=== PATIENT | female | born 1990 | race Caucasian/White ===

== ENCOUNTER 2019-02-05 15:14 | Inpatient (IN) | payer OTHER, MEDICAID ==
[2019-02-05 16:47] LABS: ABNORMAL IP MESSAGE 1; MEAN CORPUSCULAR HEMOGLOBIN 32.1 pg (29.0-33.0); MEAN CORPUSCULAR HGB CONC 34.6 g/dl (32.0-37.0); MEAN CORPUSCULAR VOLUME 92.9 fl (82.0-101.0); MEAN PLATELET VOLUME 12.1 fl (7.4-10.4); NUCLEATED RED BLOOD CELLS% 37.6 /100WBC (0.0-0.0); PLATELET COUNT 213 10^3/UL (140-415); RED CELL DISTRIBUTION WIDTH 20.5 % (11.5-14.5)
[2019-02-05 16:47] LABS: WHITE BLOOD COUNT 8.4 10^3/ul (4.8-10.8)
[2019-02-05 16:50] LABS: ADD MAN DIFF? YES; POSITIVE DIFF @See below
[2019-02-05 17:05] LABS: ALANINE AMINOTRANSFERASE 42 IU/L (13-69); ALBUMIN 3.3 g/dl (3.3-4.9); ALBUMIN/GLOBULIN RATIO 0.82; ALKALINE PHOSPHATASE 677 IU/L (42-121); AMYLASE 74 U/L (11-123); ANION GAP 7 (5-13); ASPARTATE AMINO TRANSFERASE 107 IU/L (15-46); BILIRUBIN,INDIRECT 2.6 mg/dl (0-1.1); BILIRUBIN,TOTAL 2.6 mg/dl (0.2-1.3); BLOOD UREA NITROGEN 7 mg/dl (7-20); CARBON DIOXIDE 23 mmol/L (21-31); CHLORIDE 106 mmol/L (97-110); CREATININE 0.61 mg/dl (0.44-1.00); Estimated GFR > 60 mL/min (>60); GLUCOSE 89 mg/dl (70-220); LIPASE 88 U/L (23-300); POTASSIUM 4.5 mmol/L (3.5-5.1); SODIUM 136 mmol/L (135-144); TOTAL PROTEIN 7.3 g/dl (6.1-8.1)
[2019-02-05 18:02] LABS: ANISOCYTOSIS 3+ (0-0); BAND NEUTROPHILS % (M) 12 % (0-4); BASOPHIL #M 0.4 10^3/ul (0.0-0.0); BASOPHILS % (M) 5 % (0-2); ERYTHROBLAST% (NRBC) (M) 47 % (0-0); GIANT THROMBO% (M) 63 % (0-0); LYMPHOCYTES #M 2.7 10^3/ul (0.8-2.9); LYMPHOCYTES % (M) 33 % (15-51); MONOCYTE #M 0.9 10^3/ul (0.3-0.9); MONOCYTES % (M) 11 % (0-11); MYELOCYTES #M 0.1 10^3/ul (0.0-0.0); MYELOCYTES % (M) 2 % (0-0); PLATELET ESTIMATE NORMAL; POIKILOCYTOSIS 3+ (0-0); POLYCHROMASIA 3+ (0-0); REACTIVE LYMPHOCYTES #M 0.4 10^3/ul (0.0-0.0); REACTIVE LYMPHOCYTES% (M) 5 % (0-0); SEG NEUT #M 2.8 10^3/ul (1.6-7.5); SEGMENTED NEUTROPHILS (M) % 32 % (39-77); SMUDGE%M 9 % (0-0)
[2019-02-05] MEDS: LACTATED RINGER'S 1,000 ML IV ×2 (19:16→23:16)
[2019-02-06 00:02] LABS: ADD UMIC YES; UR ASCORBIC ACID NEGATIVE (NEGATIVE); UR BACTERIA FEW /HPF (NONE SEEN); UR BILIRUBIN (Dip) NEGATIVE (NEGATIVE); UR BLOOD (Dip) 1+ mg/dL (NEGATIVE); UR CLARITY CLEAR (CLEAR); UR COLOR YELLOW (YELLOW); UR GLUCOSE (Dip) NEGATIVE (NEGATIVE); UR KETONES (Dip) NEGATIVE (NEGATIVE); UR LEUKOCYTE ESTERASE (Dip) NEGATIVE Leu/ul (NEGATIVE); UR NITRITE (Dip) NEGATIVE (NEGATIVE); UR RBC 0 /HPF (0-5); UR SPECIFIC GRAVITY (Dip) 1.002 (1.003-1.030); UR TOTAL PROTEIN (Dip) NEGATIVE (NEGATIVE); UR UROBILINOGEN (Dip) NEGATIVE (NEGATIVE); UR WBC 0 /HPF (0-5)
[2019-02-06 06:26] LABS: WHITE BLOOD COUNT 8.5 10^3/ul (4.8-10.8)
[2019-02-06 06:26] LABS: ABNORMAL IP MESSAGE 1; HEMATOCRIT 24.4 % (37.0-47.0); HEMOGLOBIN 8.6 g/dl (12.0-16.0); MEAN CORPUSCULAR HEMOGLOBIN 32.5 pg (29.0-33.0); MEAN CORPUSCULAR HGB CONC 35.2 g/dl (32.0-37.0); MEAN CORPUSCULAR VOLUME 92.1 fl (82.0-101.0); MEAN PLATELET VOLUME 12.2 fl (7.4-10.4); PLATELET COUNT 187 10^3/UL (140-415); RED BLOOD COUNT 2.65 10^6/ul (4.20-5.40); RED CELL DISTRIBUTION WIDTH 20.4 % (11.5-14.5)
[2019-02-06 06:42] LABS: ADD MAN DIFF? YES; POSITIVE DIFF @See below
[2019-02-06 06:57] LABS: ALANINE AMINOTRANSFERASE 36 IU/L (13-69); ALBUMIN/GLOBULIN RATIO 0.81; ALKALINE PHOSPHATASE 613 IU/L (42-121); ANION GAP 7 (5-13); ASPARTATE AMINO TRANSFERASE 99 IU/L (15-46); BILIRUBIN,INDIRECT 2.2 mg/dl (0-1.1); BILIRUBIN,TOTAL 2.2 mg/dl (0.2-1.3); BLOOD UREA NITROGEN 5 mg/dl (7-20); CALCIUM 8.4 mg/dl (8.4-10.2); CARBON DIOXIDE 22 mmol/L (21-31); CHLORIDE 110 mmol/L (97-110); CREATININE 0.54 mg/dl (0.44-1.00); Estimated GFR > 60 mL/min (>60); GLUCOSE 76 mg/dl (70-220); POTASSIUM 4.7 mmol/L (3.5-5.1); SODIUM 139 mmol/L (135-144); TOTAL PROTEIN 6.7 g/dl (6.1-8.1)
[2019-02-06] MEDS ORDERED: FOLIC ACID 0.4 MG TAB PO (09:00)
[2019-02-06 10:16] LABS: ANISOCYTOSIS 2+ (0-0); BAND NEUTROPHILS % (M) 12 % (0-4); BURR CELLS 1+ (0-0); EOSINOPHILS % (M) 1 % (0-7); ERYTHROBLAST% (NRBC) (M) 28 % (0-0); GIANT THROMBO% (M) 34 % (0-0); LYMPHOCYTES #M 1.3 10^3/ul (0.8-2.9); LYMPHOCYTES % (M) 16 % (15-51); METAMYELOCYTES %M 1 % (0-0); MONOCYTE #M 0.9 10^3/ul (0.3-0.9); MONOCYTES % (M) 11 % (0-11); MYELOCYTES #M 0.1 10^3/ul (0.0-0.0); MYELOCYTES % (M) 2 % (0-0); PLATELET ESTIMATE NORMAL; POIKILOCYTOSIS 2+ (0-0); POLYCHROMASIA 3+ (0-0); REACTIVE LYMPHOCYTES #M 0.7 10^3/ul (0.0-0.0); REACTIVE LYMPHOCYTES% (M) 9 % (0-0); SEG NEUT #M 4.2 10^3/ul (1.6-7.5); SEGMENTED NEUTROPHILS (M) % 48 % (39-77); SICKLE CELL 2+ (0-0); SMUDGE%M 9 % (0-0); TARGET CELLS 1+ (0-0)
[2019-02-06] MEDS: PRENATAL VITAMIN PO (10:28)
[2019-02-06] MEDS: FERROUS SULFATE (EC) 325 MG TAB PO (10:28)
[2019-02-06] MEDS: LACTATED RINGER'S 1,000 ML IV ×2 (12:04→20:21)
[2019-02-06] MEDS: FOLIC ACID 1 MG TAB PO (12:04)
[2019-02-06 23:55] LABS: COLLECTION PERIOD 24 hrs
[2019-02-07 01:07] LABS: COLLECTION PERIOD 24 hrs; CREATININE CLEARANCE 148.2 mls/min (84.0-162.0); CREATININE,URINE RANDOM 23.05 mg/dl (20-320); SCRET 0.54 mg/dl (0.44-1.00); VOLUME 5000 ml/24hrs
[2019-02-07 01:14] LABS: VOLUME 5000 mls
[2019-02-07] MEDS ORDERED: FOLIC ACID 1 MG TAB PO ×2 (09:00)
== END 2019-02-06 23:20 | disposition home or self-care (01) | DRG 832 ==
LOC: OBT 15:14 → L-D 02-06 00:07 → OBT 17:43 → L-D 17:43
DX: O26.613 Liver and biliary tract disorders in pregnancy, third trimester (principal); O47.03 False labor before 37 completed weeks of gestation, third trimester; R74.8 Abnormal levels of other serum enzymes; O99.013 Anemia complicating pregnancy, third trimester; D57.1 Sickle-cell disease without crisis; O34.219 Maternal care for unspecified type scar from previous cesarean delivery; Z3A.36 36 weeks gestation of pregnancy
CPT/HCPCS: 76705; 76815; 76818; 80053; 81001; 82150; 82575; 82728; 83690; 84156; 85025; 86850; 86900; 86901; 87086

== ENCOUNTER 2019-02-12 21:38 | Inpatient (IN) | payer OTHER ==
[2019-02-12] MEDS: DEXTROSE 5%-LR 1,000 ML IV (22:54)
[2019-02-12 23:58] LABS: ABNORMAL IP MESSAGE 1; HEMATOCRIT 23.8 % (37.0-47.0); HEMOGLOBIN 8.6 g/dl (12.0-16.0); MEAN CORPUSCULAR HGB CONC 36.1 g/dl (32.0-37.0); MEAN CORPUSCULAR VOLUME 91.2 fl (82.0-101.0); MEAN PLATELET VOLUME 12.4 fl (7.4-10.4); NUCLEATED RED BLOOD CELLS% 27.4 /100WBC (0.0-0.0); PLATELET COUNT 215 10^3/UL (140-415); RED BLOOD COUNT 2.61 10^6/ul (4.20-5.40); RED CELL DISTRIBUTION WIDTH 20.8 % (11.5-14.5)
[2019-02-13 00:16] LABS: ALANINE AMINOTRANSFERASE 43 IU/L (13-69); ALBUMIN 3.4 g/dl (3.3-4.9); ALBUMIN/GLOBULIN RATIO 0.85; ALKALINE PHOSPHATASE 768 IU/L (42-121); ANION GAP 7 (5-13); ASPARTATE AMINO TRANSFERASE 123 IU/L (15-46); BILIRUBIN,INDIRECT 2.3 mg/dl (0-1.1); BILIRUBIN,TOTAL 2.3 mg/dl (0.2-1.3); BLOOD UREA NITROGEN 8 mg/dl (7-20); CALCIUM 8.7 mg/dl (8.4-10.2); CARBON DIOXIDE 23 mmol/L (21-31); CHLORIDE 107 mmol/L (97-110); CREATININE 0.69 mg/dl (0.44-1.00); Estimated GFR > 60 mL/min (>60); GLUCOSE 100 mg/dl (70-220); POTASSIUM 4.6 mmol/L (3.5-5.1); SODIUM 137 mmol/L (135-144); TOTAL PROTEIN 7.4 g/dl (6.1-8.1); URIC ACID 7.9 mg/dl (3.1-7.9)
[2019-02-13 00:18] LABS: INR 0.99; PROTIME 13.2 Sec (11.9-14.9)
[2019-02-13 00:19] LABS: PARTIAL THROMBOPLASTIN TIME 29.7 Sec (23.0-35.0)
[2019-02-13 00:24] LABS: POSITIVE DIFF @See below
[2019-02-13 00:25] LABS: ADD MAN DIFF? YES
[2019-02-13] MEDS: LACTATED RINGER'S 1,000 ML IV (00:29)
[2019-02-13] MEDS ORDERED: MISOPROSTOL 200 MCG TAB PR ×2 (00:30→02:30)
[2019-02-13] MEDS ORDERED: OXYTOCIN 30 UNITS/LR 500 ML IV ×2 (00:30→02:30)
[2019-02-13] MEDS: CEFAZOLIN 2 GM/50 ML (PMX) 50 ML IVPB ×3 (00:30→17:33)
[2019-02-13] MEDS ORDERED: METHYLERGONOVINE 0.2 MG INJ IM ×2 (00:30→02:30)
[2019-02-13] MEDS ORDERED: CARBOPROST 250 MCG INJ IM ×2 (00:30→02:30)
[2019-02-13] MEDS ORDERED: morphine SULFATE/PF (10 MG/10 ML) INJ (00:42)
[2019-02-13] MEDS ORDERED: FENTAnyl 50 MCG/ML VIAL (00:42)
[2019-02-13] MEDS ORDERED: MIDAZOLAM 1 MG/ML 2 ML INJ (00:42)
[2019-02-13] MEDS: AMPICILLIN 2 GM/NS (PMX) 100 ML IV (00:43)
[2019-02-13] MEDS ORDERED: NALOXONE (0.4 MG/ML) INJ IV (01:00)
[2019-02-13] MEDS ORDERED: ONDANSETRON 4 MG INJ IV (01:00)
[2019-02-13] MEDS ORDERED: HYDROmorphONE 0.5 MG/0.5 ML SYG IV ×2 (01:00)
[2019-02-13] MEDS ORDERED: DIPHENHYDRAMINE 50 MG INJ IV (01:00)
[2019-02-13] MEDS ORDERED: ZOLPIDEM 5 MG TAB PO (01:00)
[2019-02-13] MEDS ORDERED: DEXAMETHASONE 4 MG/ML 1 ML INJ (01:03)
[2019-02-13] MEDS ORDERED: FAMOTIDINE 20 MG INJ (01:04)
[2019-02-13 01:16] LABS: ANISOCYTOSIS 2+ (0-0); BAND NEUTROPHILS #M 1.8 10^3/ul (0.0-0.6); BAND NEUTROPHILS % (M) 12 % (0-4); EOSINOPHILS % (M) 5 % (0-7); ERYTHROBLAST% (NRBC) (M) 30 % (0-0); GIANT THROMBO% (M) 24 % (0-0); LYMPHOCYTES #M 2.2 10^3/ul (0.8-2.9); LYMPHOCYTES % (M) 15 % (15-51); METAMYELOCYTES #M 0.7 10^3/ul (0.0-0.0); METAMYELOCYTES %M 5 % (0-0); MICROCYTOSIS 1+ (0-0); MONOCYTE #M 1.2 10^3/ul (0.3-0.9); MONOCYTES % (M) 8 % (0-11); MYELOCYTES #M 0.1 10^3/ul (0.0-0.0); MYELOCYTES % (M) 1 % (0-0); OVALOCYTES 2+ (0-0); PLATELET ESTIMATE NORMAL; PLATELET MORPHOLOGY COMMENT @See below; POIKILOCYTOSIS 3+ (0-0); POLYCHROMASIA 1+ (0-0); REACTIVE LYMPHOCYTES% (M) 7 % (0-0); SEG NEUT #M 7.5 10^3/ul (1.6-7.5); SEGMENTED NEUTROPHILS (M) % 48 % (39-77); SICKLE CELL 2+ (0-0); SMUDGE%M 26 % (0-0); SPHEROCYTES 1+ (0-0)
[2019-02-13] MEDS ORDERED: CEFAZOLIN 2 GM/50 ML (PMX) 50 ML IVPB ×2 (02:30→05:00)
[2019-02-13] MEDS ORDERED: NACL 0.9% 3 ML SYG IV (02:30)
[2019-02-13] MEDS ORDERED: LANOLIN HPA 1 PKT TOP (02:30)
[2019-02-13] MEDS: OXYTOCIN 30 UNITS/LR 500 ML IV ×2 (03:17→04:44)
[2019-02-13 03:55] LABS: ADD MAN DIFF? NO
[2019-02-13 04:01] LABS: WHITE BLOOD COUNT 14.5 10^3/ul (4.8-10.8)
[2019-02-13 04:01] LABS: ABNORMAL IP MESSAGE 1; BASOPHIL # 0.1 10^3/ul (0.0-0.1); BASOPHILS % 0.8 % (0.0-2.0); EOSINOPHILS # 0.1 10^3/ul (0.0-0.5); EOSINOPHILS % 0.4 % (0.0-7.0); HEMOGLOBIN 7.9 g/dl (12.0-16.0); LYMPHOCYTES # 2.3 10^3/ul (0.8-2.9); MEAN CORPUSCULAR HEMOGLOBIN 33.3 pg (29.0-33.0); MEAN CORPUSCULAR HGB CONC 35.9 g/dl (32.0-37.0); MEAN CORPUSCULAR VOLUME 92.8 fl (82.0-101.0); MEAN PLATELET VOLUME 11.8 fl (7.4-10.4); MONOCYTE # 0.7 10^3/ul (0.3-0.9); MONOCYTES % 4.7 % (0.0-11.0); NEUTROPHIL # 9.6 10^3/ul (1.6-7.5); NEUTROPHILS % 66.2 % (39.0-77.0); NUCLEATED RED BLOOD CELLS # 3.7 10^3/ul (0.0-0.0); NUCLEATED RED BLOOD CELLS% 25.6 /100WBC (0.0-0.0); PLATELET COUNT 157 10^3/UL (140-415); RED BLOOD COUNT 2.37 10^6/ul (4.20-5.40); RED CELL DISTRIBUTION WIDTH 20.6 % (11.5-14.5)
[2019-02-13 04:21] LABS: POSITIVE DIFF @See below
[2019-02-13] MEDS: KETOROLAC 30 MG INJ IV ×2 (04:26→14:39)
[2019-02-13] MEDS ORDERED: OXYTOCIN 30 UNITS/LR 500 ML BAG IV (12:42)
[2019-02-13] MEDS: FERROUS SULFATE (EC) 325 MG TAB PO (20:41)
[2019-02-13 20:56] LABS: RAPID PLASMA REAGIN NONREACTIVE (NR)
[2019-02-14] MEDS: CEFAZOLIN 2 GM/50 ML (PMX) 50 ML IVPB (01:00)
[2019-02-14] MEDS: OXYCODONE/ACETAMINOPHEN (5/325) TAB PO ×2 (03:46→17:52)
[2019-02-14] MEDS: IBUPROFEN 600 MG TAB PO ×4 (05:35→23:40)
[2019-02-14 07:53] LABS: ABNORMAL IP MESSAGE 1; MEAN CORPUSCULAR HEMOGLOBIN 33.3 pg (29.0-33.0); MEAN CORPUSCULAR HGB CONC 35.8 g/dl (32.0-37.0); MEAN CORPUSCULAR VOLUME 93.1 fl (82.0-101.0); MEAN PLATELET VOLUME 12.5 fl (7.4-10.4); NUCLEATED RED BLOOD CELLS% 24.2 /100WBC (0.0-0.0); PLATELET COUNT 199 10^3/UL (140-415); RED BLOOD COUNT 2.04 10^6/ul (4.20-5.40); RED CELL DISTRIBUTION WIDTH 21.2 % (11.5-14.5)
[2019-02-14 07:53] LABS: WHITE BLOOD COUNT 11.8 10^3/ul (4.8-10.8)
[2019-02-14 08:02] LABS: POSITIVE DIFF @See below
[2019-02-14 08:04] LABS: ADD MAN DIFF? YES; HEMOGLOBIN 6.8 g/dl (12.0-16.0)
[2019-02-14 09:36] LABS: ANISOCYTOSIS 2+ (0-0); BAND NEUTROPHILS #M 0.8 10^3/ul (0.0-0.6); BAND NEUTROPHILS % (M) 7 % (0-4); BURR CELLS 1+ (0-0); ERYTHROBLAST% (NRBC) (M) 24 % (0-0); GIANT THROMBO% (M) 6 % (0-0); HOWELL-JOLLY BODIES 1+ (0-0); LYMPHOCYTES #M 3.7 10^3/ul (0.8-2.9); LYMPHOCYTES % (M) 32 % (15-51); MONOCYTE #M 0.5 10^3/ul (0.3-0.9); MONOCYTES % (M) 5 % (0-11); OVALOCYTES 1+ (0-0); PLATELET ESTIMATE NORMAL; POIKILOCYTOSIS 2+ (0-0); POLYCHROMASIA 3+ (0-0); SEG NEUT #M 6.7 10^3/ul (1.6-7.5); SEGMENTED NEUTROPHILS (M) % 56 % (39-77); SICKLE CELL 2+ (0-0); SMUDGE%M 4 % (0-0); TARGET CELLS 1+ (0-0)
[2019-02-14] MEDS: FERROUS SULFATE (EC) 325 MG TAB PO ×3 (09:52→21:51)
[2019-02-15] MEDS: OXYCODONE/ACETAMINOPHEN (5/325) TAB PO ×2 (05:06→09:49)
[2019-02-15] MEDS: IBUPROFEN 600 MG TAB PO ×4 (06:00→23:35)
[2019-02-15 07:18] LABS: ABNORMAL IP MESSAGE 1; HEMATOCRIT 20.4 % (37.0-47.0); HEMOGLOBIN 7.1 g/dl (12.0-16.0); MEAN CORPUSCULAR HEMOGLOBIN 32.9 pg (29.0-33.0); MEAN CORPUSCULAR HGB CONC 34.8 g/dl (32.0-37.0); MEAN CORPUSCULAR VOLUME 94.4 fl (82.0-101.0); MEAN PLATELET VOLUME 11.6 fl (7.4-10.4); NUCLEATED RED BLOOD CELLS% 30.3 /100WBC (0.0-0.0); PLATELET COUNT 241 10^3/UL (140-415); RED BLOOD COUNT 2.16 10^6/ul (4.20-5.40); RED CELL DISTRIBUTION WIDTH 22.2 % (11.5-14.5)
[2019-02-15 07:20] LABS: ADD MAN DIFF? YES; POSITIVE DIFF @See below
[2019-02-15 09:37] LABS: ANISOCYTOSIS 2+ (0-0); BAND NEUTROPHILS #M 1.4 10^3/ul (0.0-0.6); BAND NEUTROPHILS % (M) 12 % (0-4); EOSINOPHILS % (M) 2 % (0-7); ERYTHROBLAST% (NRBC) (M) 47 % (0-0); GIANT THROMBO% (M) 9 % (0-0); LYMPHOCYTES #M 3.1 10^3/ul (0.8-2.9); LYMPHOCYTES % (M) 26 % (15-51); MICROCYTOSIS 1+ (0-0); MONOCYTE #M 0.7 10^3/ul (0.3-0.9); MONOCYTES % (M) 6 % (0-11); MYELOCYTES #M 0.2 10^3/ul (0.0-0.0); MYELOCYTES % (M) 2 % (0-0); PLATELET ESTIMATE NORMAL; POIKILOCYTOSIS 3+ (0-0); POLYCHROMASIA 3+ (0-0); PROMYELOCYTES #M 0.2 10^3/ul (0-0); PROMYELOCYTES % (M) 2 % (0-0); SEG NEUT #M 6.2 10^3/ul (1.6-7.5); SEGMENTED NEUTROPHILS (M) % 50 % (39-77); SICKLE CELL 2+ (0-0); SMUDGE%M 4 % (0-0)
[2019-02-15] MEDS: FERROUS SULFATE (EC) 325 MG TAB PO ×3 (09:48→21:40)
[2019-02-15] MEDS: SENNA/DOCUSATE NA (8.6MG/50MG) TAB PO ×2 (12:22→21:40)
[2019-02-16] MEDS: IBUPROFEN 600 MG TAB PO ×2 (05:37→12:09)
[2019-02-16 07:37] LABS: HEMOGLOBIN 7.9 g/dl (12.0-16.0)
[2019-02-16] MEDS: FERROUS SULFATE (EC) 325 MG TAB PO ×2 (10:11→12:09)
[2019-02-16] MEDS: SENNA/DOCUSATE NA (8.6MG/50MG) TAB PO (10:11)
== END 2019-02-16 16:15 | disposition home or self-care (01) | DRG 786 ==
LOC: OBT 21:38 → L-D 21:38 → PP1 02-13 04:41
PROC: 10D00Z1 Extraction of Products of Conception, Low, Open Approach (ICD-10-PCS; principal; 2019-02-13 00:45)
PROC: 10D00Z1 Extraction of Products of Conception, Low, Open Approach (ICD-10-PCS; 2019-02-13 00:45)
DX: O65.5 Obstructed labor due to abnormality of maternal pelvic organs (principal); O45.93 Premature separation of placenta, unspecified, third trimester; O34.211 Maternal care for low transverse scar from previous cesarean delivery; Z3A.37 37 weeks gestation of pregnancy; O99.02 Anemia complicating childbirth; D57.1 Sickle-cell disease without crisis; Z37.0 Single live birth
CPT/HCPCS: 36415; 76818; 80053; 84560; 85014; 85018; 85025; 85610; 85730; 86592; 86850; 86900; 86901; 86920; 88307; 96360; 96361; 99464